=== PATIENT | male | born 1950 | race Caucasian/White ===

== ENCOUNTER 2019-10-04 18:34 | Inpatient (IN) ==
[2019-10-04] MEDS ORDERED: 0.9 % Sodium Chloride 1,000 ML IVC ONE (18:55)
[2019-10-04 19:36] LABS: Basophils % 0.1 %; Eosinophils % 0.1 %; Hematocrit 39.6 % (37.5-50.1); Immature Granulocytes % 0.7 % (0-4); Lymphocytes % 5.5 %; Mean Corpuscular HGB Conc 30.3 g/dL (31.6-35.5); Mean Corpuscular Volume 89.2 fL (83.0-100.0); Mean Platelet Volume 10.1 fL (9.4-12.4); Monocytes # 1.8 K/mcL (0.0-1.3); Neutrophils # 15.1 K/mcL (1.6-8.9); Platelet Count 292 K/mcL (140-400); Red Blood Count 4.44 M/mcL (4.19-5.50); Red Cell Distribution Width 16.8 % (11.5-14.5); Segmented Neutrophils % 83.6 %; White Blood Count 18.1 K/mcL (4.3-11.1)
[2019-10-04 19:39] LABS: INR 1.2; Prothrombin Time 13.5 Seconds (9.4-12.1)
[2019-10-04 19:48] LABS: VBG HCO3 38 mEq/L (21-27); VBG PCO2 71 mmHg (41-51); VBG PH 7.34 pH Units (7.32-7.42); VBG PO2 19 mmHg (25-50)
[2019-10-04 19:50] LABS: Bilirubin,Urine Negative (Negative); Blood,Urine Trace-intact (Negative); Clarity,Urine Slightly Cloudy (Clear); Glucose,Urine (UA) Normal (Normal); Ketones,Urine Negative (Negative); Leukocyte Esterase,Urine Negative (Negative); Nitrite,Urine Negative (Negative); Protein,Urine 30 mg/dL (Neg-Trace); Urobilinogen,Urine Normal (Normal)
[2019-10-04 19:52] LABS: Alanine Aminotransferase 50 Units/L (7-52); Albumin 3.6 g/dL (3.5-5.7); Albumin/Globulin Ratio 1.7 (1.1-2.2); Alkaline Phosphatase 75 Units/L (34-104); Aspartate Amino Transferase 28 Units/L (13-39); BUN/Creatinine Ratio 46 (6-26); Bilirubin,Total 0.8 mg/dL (0.3-1.0); Blood Urea Nitrogen 31 mg/dL (8-23); Calcium 8.9 mg/dL (8.6-10.3); Carbon Dioxide 43 mEq/L (23-29); Chloride 97 mEq/L (98-107); Globulin 2.1 g/dL (2.4-3.5); Glucose 121 mg/dL (70-105); Magnesium 2.1 mg/dL (1.6-2.6); Osmolality,Calculated 304 (280-300); Potassium 4.2 mEq/L (3.5-5.1); Sodium 143 mEq/L (136-145); Total Protein 5.7 g/dL (6.4-8.9); Troponin I 0.03 ng/mL (< 0.04); eGFR For African Americans > 60 (> 60); eGFR For Non-African Americans > 60 (> 60)
[2019-10-04 19:53] LABS: Color,Urine Yellow (Yellow)
[2019-10-04 19:54] LABS: Amorphous Sediment,Urine Few per hpf (None-Few); RBC,Urine 0-3 per hpf (0-3)
[2019-10-04 20:17] LABS: ABG Base Excess 9 mEq/L (-2 to 3); ABG HCO3 35 mEq/L (21-27); ABG Oxygen Saturation 99 % (95-98); ABG PCO2 56 mmHg (35-45); ABG PO2 123 mmHg (85-104); ABG TCO2 37 mEq/L (20-26)
[2019-10-04] MEDS ORDERED: Piperacillin/Tazobactam 3.375 GM in D5% in Water (Mini-Bag+) 100 ML IVP ONE (21:25)
[2019-10-04] MEDS ORDERED: Ondansetron 4 MG/2 ML VIAL IVP PRN (21:25)
[2019-10-04] MEDS ORDERED: Naloxone 0.4 MG/ML INJ IVP PRN (21:25)
[2019-10-04] MEDS ORDERED: Acetaminophen 325 MG TABLET PO PRN (21:25)
[2019-10-04] MEDS ORDERED: Piperacillin/Tazobactam 3.375 GM in 0.9 % Sodium Chloride Mini Bag 100 ML IVP ONE (21:45)
[2019-10-04] MEDS ORDERED: Azithromycin 500 MG in D5% in Water 250 ML IVPB SCH (22:00)
[2019-10-04] MEDS ORDERED: Piperacillin/Tazobactam 3.375 GM in 0.9 % Sodium Chloride Mini Bag 100 ML IVPB ONE (22:06)
[2019-10-04] MEDS: Budesonide/Formoterol 160/4.5 1 PUFF INH IH SCH (23:30)
[2019-10-05] MEDS: clonazePAM 0.5 MG TABLET PO PRN ×3 (01:02→15:59)
[2019-10-05 05:58] LABS: Hematocrit 34.3 % (37.5-50.1); Hemoglobin 10.6 g/dL (12.9-16.9); Mean Corpuscular HGB Conc 30.9 g/dL (31.6-35.5); Mean Corpuscular Hemoglobin 27.2 pg (28.0-33.3); Mean Corpuscular Volume 87.9 fL (83.0-100.0); Mean Platelet Volume 10.1 fL (9.4-12.4); Platelet Count 248 K/mcL (140-400); Red Cell Distribution Width 16.8 % (11.5-14.5); White Blood Count 15.3 K/mcL (4.3-11.1)
[2019-10-05 06:44] LABS: Alanine Aminotransferase 37 Units/L (7-52); Albumin 2.9 g/dL (3.5-5.7); Albumin/Globulin Ratio 1.7 (1.1-2.2); Alkaline Phosphatase 54 Units/L (34-104); Aspartate Amino Transferase 18 Units/L (13-39); BUN/Creatinine Ratio 39 (6-26); Bilirubin,Total 1.1 mg/dL (0.3-1.0); Blood Urea Nitrogen 22 mg/dL (8-23); Calcium 7.7 mg/dL (8.6-10.3); Carbon Dioxide 38 mEq/L (23-29); Chloride 100 mEq/L (98-107); Globulin 1.7 g/dL (2.4-3.5); Glucose 94 mg/dL (70-105); Osmolality,Calculated 295 (280-300); Potassium 3.8 mEq/L (3.5-5.1); Sodium 141 mEq/L (136-145); Total Protein 4.6 g/dL (6.4-8.9); eGFR For African Americans > 60 (> 60); eGFR For Non-African Americans > 60 (> 60)
[2019-10-05] MEDS: Budesonide/Formoterol 160/4.5 1 PUFF INH IH SCH (07:14)
[2019-10-05] MEDS ORDERED: predniSONE 5 MG TABLET PO SCH (08:00)
[2019-10-05] MEDS ORDERED: Cholecalciferol (D-3) 1,000 UNIT (25MCG) TABLET PO SCH (09:00)
[2019-10-05] MEDS: Ipratropium/Albuterol Neb 3 ML IH PRN ×2 (10:47→15:25)
[2019-10-05] MEDS ORDERED: MethylPREDNISolone 40 MG/ML VIAL IVP SCH (12:00)
[2019-10-05] MEDS: 0.9 % Sodium Chloride 1,000 ML IVC SCH (12:41)
[2019-10-05 13:38] VITALS: BP 122/72
[2019-10-05] MEDS ORDERED: Cefepime HCl 1,000 MG in Water for inj. (sterile) 10 ML IVP SCH (15:00)
[2019-10-05] MEDS ORDERED: methylPREDNISolone 125 MG/2 ML VIAL IVP SCH (16:00)
[2019-10-05] MEDS ORDERED: traZODone 50 MG TABLET PO SCH (21:00)
== END 2019-10-05 16:08 | disposition short-term general hospital (02) | DRG 193 ==
LOC: EMEROOGRE 18:34 → INPGRE 18:34
PROVIDERS: ADMIT Family Medicine; ATTEND Family Medicine